=== PATIENT | male | born 1945 | race Caucasian/White ===

== ENCOUNTER 2018-04-13 19:47 | Inpatient (IN) | payer MEDICARE ==
[~2018-04-13] VITALS: Ht 167.6 cm; Wt 82.3 kg
[~2018-04-13 19:47] MED LIST: ASPI-496 PO; ATEN100T PO; ATOR40TA78 PO; CARV-39 PO; CARV12.543 PO; CARV3.1212 PO; CARV6.252 PO; CITA10TA4 PO; CLOP75TA PO; CLOP75TA52 PO; DILT120C67 PO; FURO20TA3 PO; HYDR25TA11 PO; LORA0.5T PO; LOSA50TA7 PO; SPIR25TA5 PO; TICA90TA PO
[2018-04-13 20:20] LABS: BASOPHILS # (AUTO) 0.08 x10^3/uL (0-0.1); BASOPHILS % (AUTO) 1 % (0-1); EOSINOPHILS # (AUTO) 0.23 x10^3/uL (0-0.4); EOSINOPHILS % (AUTO) 3 % (1-7); LYMPHOCYTES # (AUTO) 2.64 x10^3/uL (1-3.4); LYMPHOCYTES % (AUTO) 38 % (22-44); MD NO; MEAN CORPUSCULAR HGB CONC 33.4 g/dL (33.2-36.2); MEAN PLATELET VOLUME 8.8 fL (7.4-10.4); MONOCYTES # (AUTO) 0.48 x10^3/uL (0.2-0.8); MONOCYTES % (AUTO) 7 % (2-9); NEUTROPHILS # (AUTO) 3.54 x10^3/uL (1.8-6.8); NEUTROPHILS % (AUTO) 51 % (42-75); PLATELET COUNT 216 x10^3/uL (130-400); RED BLOOD COUNT 4.91 x10^6/uL (4.38-5.82); RED CELL DISTRIBUTION WIDTH 14.4 % (9.4-14.8)
[2018-04-13] MEDS ORDERED: OMNIPAQUE 350 MG/ML, 100ML BOTTLE ONE (20:28)
[2018-04-13 20:31] LABS: INTERNATIONAL NORMALIZED RATIO 1.02 (0.93-1.1); PROTHROMBIN TIME 10.8 Seconds (9.6-11.5)
[2018-04-13] MEDS ORDERED: SODIUM CHLORIDE FLUSH 10ML SYR IVF PRN (21:00)
[2018-04-13] MEDS ORDERED: LOSARTAN POTASSIUM 50 MG PO SCH (21:30)
[2018-04-13] MEDS ORDERED: ONDANSETRON 4 MG TABLET PO PRN (21:30)
[2018-04-13] MEDS ORDERED: LORazepam 0.5MG TABLET PO PRN (21:30)
[2018-04-13] MEDS ORDERED: POLYETHYLENE GLYCOL 17 GM PACKET PO PRN (21:30)
[2018-04-13] MEDS ORDERED: ATORVASTATIN 40 MG TABLET PO SCH (21:30)
[2018-04-13] MEDS ORDERED: BISACODYL 10 MG SUPP PR PRN (21:30)
[2018-04-13 22:17] VITALS: BP 184/116
[2018-04-13] MEDS: ATORVASTATIN 80 MG TABLET PO SCH (23:04)
[2018-04-14 00:20] VITALS: BP 183/83
[2018-04-14 04:12] VITALS: BP 190/80
[2018-04-14 05:45] LABS: BASOPHILS # (AUTO) 0.03 x10^3/uL (0-0.1); BASOPHILS % (AUTO) 0 % (0-1); EOSINOPHILS # (AUTO) 0.19 x10^3/uL (0-0.4); EOSINOPHILS % (AUTO) 2 % (1-7); LYMPHOCYTES # (AUTO) 1.91 x10^3/uL (1-3.4); LYMPHOCYTES % (AUTO) 21 % (22-44); MD NO; MEAN CORPUSCULAR HEMOGLOBIN 31.7 pg (27.5-34.5); MEAN CORPUSCULAR HGB CONC 33.4 g/dL (33.2-36.2); MEAN CORPUSCULAR VOLUME 94.7 fL (81-97); MONOCYTES # (AUTO) 0.45 x10^3/uL (0.2-0.8); MONOCYTES % (AUTO) 5 % (2-9); NEUTROPHILS # (AUTO) 6.41 x10^3/uL (1.8-6.8); NEUTROPHILS % (AUTO) 71 % (42-75); PLATELET COUNT 219 x10^3/uL (130-400); RED BLOOD COUNT 5.04 x10^6/uL (4.38-5.82); RED CELL DISTRIBUTION WIDTH 14.3 % (9.4-14.8)
[2018-04-14 05:57] LABS: ALANINE AMINOTRANSFERASE 25 U/L (12-78); ALBUMIN 3.5 g/dL (3.4-5.0); ANION GAP 10 mmol/L (5-15); CALCIUM 9.3 mg/dL (8.5-10.1); CHLORIDE 110 mmol/L (98-107); CHOLESTEROL, TOTAL 191 mg/dL (140-239); CREATININE 1.02 mg/dL (0.7-1.3)
[2018-04-14 06:00] LABS: ALKALINE PHOSPHATASE 100 U/L (45-117); BILIRUBIN,TOTAL 0.9 mg/dL (0.2-1.0); CHOL/HDL RATIO 4.8; HDL CHOL % 21 % (26-37); HDL CHOLESTEROL (DIRECT) 40 mg/dL (40-60); LDL CHOLESTEROL,CALCULATED 125 mg/dL (54-169); LDL/HDL RATIO 3.1 (0.5-3.0); TOTAL PROTEIN 7.6 g/dL (6.4-8.2); TRIGLYCERIDES 131 mg/dL (50-200); VLDL CHOLESTEROL 26 mg/dL (0-25)
[2018-04-14] MEDS ORDERED: CARVEDILOL 3.125 MG PO SCH (06:00)
[2018-04-14 07:45] VITALS: BP 151/87
[2018-04-14] MEDS ORDERED: ASPIRIN 81 MG TABLET EC PO SCH (09:00)
[2018-04-14] MEDS ORDERED: CLOPIDOGREL 75 MG TABLET PO SCH (09:00)
[2018-04-14] MEDS ORDERED: SPIRONOLACTONE 25 MG TABLET PO SCH (09:00)
[2018-04-14 12:39] VITALS: BP 182/121
[2018-04-14] MEDS: CITALOPRAM 10 MG TABLET PO SCH (13:23)
[2018-04-14] MEDS: FUROSEMIDE 20 MG TABLET PO SCH (13:23)
[2018-04-14] MEDS ORDERED: DO NOT GIVE XX PRN (15:30)
[2018-04-14] MEDS ORDERED: HEPARIN wt. based STROKE protocol IV PRN (15:30)
[2018-04-14] MEDS ORDERED: HEPARIN 25,000 UNITS/500ML PMX 500 ML IV PRN (16:00)
[2018-04-14 20:00] VITALS: BP 209/131
[2018-04-14] MEDS: ATORVASTATIN 80 MG TABLET PO SCH (20:20)
[2018-04-14] MEDS: ACETAMINOPHEN 325 MG TABLET PO PRN (20:20)
[2018-04-14] MEDS: APIXABAN 5 MG TABLET PO SCH (20:20)
[2018-04-14 21:15] VITALS: BP 191/101
[2018-04-15 00:35] VITALS: BP 183/104
[2018-04-15] MEDS: ACETAMINOPHEN 325 MG TABLET PO PRN (03:22)
[2018-04-15 08:00] VITALS: BP 193/116
[2018-04-15] MEDS ORDERED: hydrALAzine 20 MG/ML, 1ML IV ONE (08:00)
[2018-04-15 08:31] LABS: BASOPHILS # (AUTO) 0.07 x10^3/uL (0-0.1); BASOPHILS % (AUTO) 1 % (0-1); EOSINOPHILS % (AUTO) 1 % (1-7); LYMPHOCYTES # (AUTO) 1.87 x10^3/uL (1-3.4); LYMPHOCYTES % (AUTO) 19 % (22-44); MD NO; MEAN CORPUSCULAR HEMOGLOBIN 31.4 pg (27.5-34.5); MEAN CORPUSCULAR HGB CONC 32.7 g/dL (33.2-36.2); MEAN CORPUSCULAR VOLUME 95.9 fL (81-97); MEAN PLATELET VOLUME 9.2 fL (7.4-10.4); MONOCYTES # (AUTO) 0.42 x10^3/uL (0.2-0.8); MONOCYTES % (AUTO) 4 % (2-9); NEUTROPHILS # (AUTO) 7.23 x10^3/uL (1.8-6.8); NEUTROPHILS % (AUTO) 75 % (42-75); PLATELET COUNT 215 x10^3/uL (130-400); RED BLOOD COUNT 5.21 x10^6/uL (4.38-5.82); RED CELL DISTRIBUTION WIDTH 14.3 % (9.4-14.8)
[2018-04-15 08:41] LABS: ALBUMIN 3.4 g/dL (3.4-5.0); ANION GAP 9 mmol/L (5-15); CALCIUM 8.8 mg/dL (8.5-10.1); CHLORIDE 108 mmol/L (98-107); CREATININE 1.06 mg/dL (0.7-1.3)
[2018-04-15 08:53] LABS: TROPONIN I 0.057 ng/mL (0.000-0.045)
[2018-04-15 13:25] VITALS: BP 189/78
[2018-04-15] MEDS: FUROSEMIDE 20 MG TABLET PO SCH (13:46)
[2018-04-15] MEDS: CITALOPRAM 10 MG TABLET PO SCH (13:46)
[2018-04-15] MEDS: APIXABAN 5 MG TABLET PO SCH ×2 (13:46→21:46)
[2018-04-15 20:03] VITALS: BP 177/89
[2018-04-15] MEDS: ATORVASTATIN 80 MG TABLET PO SCH (21:46)
[2018-04-16 01:47] VITALS: BP 167/79
[2018-04-16 05:38] LABS: TROPONIN I 0.706 ng/mL (0.000-0.045)
[2018-04-16 07:51] VITALS: BP_SYST 171; BP_SYST 183; BP_DIAS 110
[2018-04-16] MEDS: FUROSEMIDE 20 MG TABLET PO SCH ×2 (08:15→08:22)
[2018-04-16] MEDS: APIXABAN 5 MG TABLET PO SCH ×3 (08:15→21:26)
[2018-04-16] MEDS: CITALOPRAM 10 MG TABLET PO SCH ×2 (08:15→08:22)
[2018-04-16] MEDS ORDERED: hydrALAzine 20 MG/ML, 1ML IV PRN (08:30)
[2018-04-16] MEDS: CARVEDILOL 6.25 MG TABLET PO SCH ×2 (10:06→18:23)
[2018-04-16] MEDS: ONDANSETRON 2MG/ML, 2ML IVPush PRN (10:51)
[2018-04-16 12:10] VITALS: BP 168/91
[2018-04-16] MEDS ORDERED: MAGNESIUM SULFATE PMX 2GM/50ML 50 ML IV ONE (12:30)
[2018-04-16] MEDS ORDERED: NITROGLYCERIN 0.4 MG BOTTLE (25 TABS) SL PRN (12:30)
[2018-04-16 12:57] LABS: TROPONIN I 0.586 ng/mL (0.000-0.045)
[2018-04-16 14:10] VITALS: BP 151/77
[2018-04-16 17:37] LABS: TROPONIN I 0.785 ng/mL (0.000-0.045)
[2018-04-16 18:59] VITALS: BP 148/79
[2018-04-16] MEDS: ATORVASTATIN 80 MG TABLET PO SCH (21:27)
[2018-04-16] MEDS: LOSARTAN 50MG TABLET PO SCH (21:27)
[2018-04-17 01:43] VITALS: BP 151/76
[2018-04-17] MEDS: CARVEDILOL 6.25 MG TABLET PO SCH ×2 (05:53→18:31)
[2018-04-17 07:13] VITALS: BP 144/80
[2018-04-17] MEDS: CITALOPRAM 10 MG TABLET PO SCH (09:32)
[2018-04-17] MEDS: APIXABAN 5 MG TABLET PO SCH ×2 (09:32→22:06)
[2018-04-17] MEDS: FUROSEMIDE 20 MG TABLET PO SCH (09:32)
[2018-04-17] MEDS: SPIRONOLACTONE 25 MG TABLET PO SCH (11:41)
[2018-04-17 14:10] VITALS: BP 180/91
[2018-04-17 19:28] VITALS: BP 161/90
[2018-04-17] MEDS: LOSARTAN 50MG TABLET PO SCH (22:07)
[2018-04-17] MEDS: ATORVASTATIN 80 MG TABLET PO SCH (22:07)
[2018-04-17] MEDS: ONDANSETRON 2MG/ML, 2ML IVPush PRN (22:35)
[2018-04-18 01:17] VITALS: BP 160/90
[2018-04-18 05:34] VITALS: BP 176/91
[2018-04-18] MEDS: CARVEDILOL 6.25 MG TABLET PO SCH (05:37)
[2018-04-18 05:42] LABS: ALBUMIN 3.4 g/dL (3.4-5.0); ANION GAP 9 mmol/L (5-15); CALCIUM 8.6 mg/dL (8.5-10.1); CHLORIDE 112 mmol/L (98-107); CREATININE 1.55 mg/dL (0.7-1.3)
[2018-04-18] MEDS: SPIRONOLACTONE 25 MG TABLET PO SCH (09:39)
[2018-04-18] MEDS: APIXABAN 5 MG TABLET PO SCH ×2 (09:39→21:46)
[2018-04-18] MEDS: FUROSEMIDE 20 MG TABLET PO SCH (09:39)
[2018-04-18] MEDS: CITALOPRAM 10 MG TABLET PO SCH (09:39)
[2018-04-18] MEDS ORDERED: LORazepam 0.5MG TABLET PO PRN ×2 (11:30)
[2018-04-18] MEDS ORDERED: SODIUM CHLORIDE 0.45% 1,000 ML IV SCH (12:30)
[2018-04-18] MEDS: SODIUM CHLORIDE 0.45% 500 ML IV SCH ×2 (12:30→19:38)
[2018-04-18 13:29] VITALS: BP 151/81
[2018-04-18] MEDS: CARVEDILOL 12.5 MG TABLET PO SCH (17:49)
[2018-04-18 19:42] VITALS: BP 127/72
[2018-04-18] MEDS: ATORVASTATIN 80 MG TABLET PO SCH (21:46)
[2018-04-18] MEDS: LOSARTAN 50MG TABLET PO SCH (21:46)
[2018-04-18] MEDS ORDERED: MIRTAZAPINE 15 MG TABLET ONE (23:22)
[2018-04-18] MEDS: MIRTAZAPINE 15 MG TABLET PO SCH (23:24)
[2018-04-19 00:58] VITALS: BP 134/68
[2018-04-19 05:07] VITALS: BP 165/87
[2018-04-19] MEDS: CARVEDILOL 12.5 MG TABLET PO SCH ×2 (05:07→18:44)
[2018-04-19] MEDS: SODIUM CHLORIDE 0.45% 500 ML IV SCH ×2 (05:07→18:00)
[2018-04-19 05:35] LABS: BASOPHILS # (AUTO) 0.06 x10^3/uL (0-0.1); BASOPHILS % (AUTO) 1 % (0-1); EOSINOPHILS # (AUTO) 0.34 x10^3/uL (0-0.4); EOSINOPHILS % (AUTO) 3 % (1-7); LYMPHOCYTES # (AUTO) 2.98 x10^3/uL (1-3.4); LYMPHOCYTES % (AUTO) 29 % (22-44); MD NO; MEAN CORPUSCULAR HGB CONC 33.4 g/dL (33.2-36.2); MEAN CORPUSCULAR VOLUME 95.9 fL (81-97); MEAN PLATELET VOLUME 9.3 fL (7.4-10.4); MONOCYTES # (AUTO) 0.84 x10^3/uL (0.2-0.8); MONOCYTES % (AUTO) 8 % (2-9); NEUTROPHILS # (AUTO) 5.99 x10^3/uL (1.8-6.8); NEUTROPHILS % (AUTO) 59 % (42-75); PLATELET COUNT 201 x10^3/uL (130-400); RED BLOOD COUNT 4.58 x10^6/uL (4.38-5.82); RED CELL DISTRIBUTION WIDTH 14.5 % (9.4-14.8)
[2018-04-19 05:56] LABS: ALBUMIN 3.1 g/dL (3.4-5.0); ANION GAP 9 mmol/L (5-15); CALCIUM 8.4 mg/dL (8.5-10.1); CHLORIDE 109 mmol/L (98-107)
[2018-04-19 06:09] LABS: ALANINE AMINOTRANSFERASE 19 U/L (12-78); ALKALINE PHOSPHATASE 78 U/L (45-117); BILIRUBIN,TOTAL 1.1 mg/dL (0.2-1.0); CREATININE 1.82 mg/dL (0.7-1.3); FREE T4 (FREE THYROXINE) 0.96 ng/dL (0.76-1.46); TOTAL PROTEIN 6.9 g/dL (6.4-8.2)
[2018-04-19 07:01] VITALS: BP 139/69
[2018-04-19] MEDS: CITALOPRAM 10 MG TABLET PO SCH (09:00)
[2018-04-19] MEDS: FUROSEMIDE 20 MG TABLET PO SCH (09:37)
[2018-04-19] MEDS: SPIRONOLACTONE 25 MG TABLET PO SCH (09:37)
[2018-04-19] MEDS: APIXABAN 5 MG TABLET PO SCH ×2 (09:37→20:38)
[2018-04-19 12:46] VITALS: BP 138/79
[2018-04-19 18:40] VITALS: BP 151/81
[2018-04-19 19:02] VITALS: BP 146/78
[2018-04-19] MEDS: LOSARTAN 50MG TABLET PO SCH (20:38)
[2018-04-19] MEDS: MIRTAZAPINE 15 MG TABLET PO SCH (20:38)
[2018-04-19] MEDS: ATORVASTATIN 80 MG TABLET PO SCH (20:38)
[2018-04-20 01:18] VITALS: BP 136/82
[2018-04-20] MEDS: CARVEDILOL 12.5 MG TABLET PO SCH ×3 (05:46→18:35)
[2018-04-20] MEDS: SODIUM CHLORIDE 0.45% 500 ML IV SCH ×2 (05:46→18:35)
[2018-04-20 06:38] VITALS: BP 169/92
[2018-04-20 06:42] LABS: ALANINE AMINOTRANSFERASE 19 U/L (12-78); ALBUMIN 3.1 g/dL (3.4-5.0); ANION GAP 7 mmol/L (5-15); BASOPHILS # (AUTO) 0.06 x10^3/uL (0-0.1); BASOPHILS % (AUTO) 1 % (0-1); CALCIUM 8.7 mg/dL (8.5-10.1); CHLORIDE 112 mmol/L (98-107); EOSINOPHILS # (AUTO) 0.22 x10^3/uL (0-0.4); EOSINOPHILS % (AUTO) 2 % (1-7); LYMPHOCYTES # (AUTO) 2.21 x10^3/uL (1-3.4); LYMPHOCYTES % (AUTO) 24 % (22-44); MD NO; MEAN CORPUSCULAR HGB CONC 33.9 g/dL (33.2-36.2); MEAN CORPUSCULAR VOLUME 97.3 fL (81-97); MEAN PLATELET VOLUME 9.6 fL (7.4-10.4); MONOCYTES # (AUTO) 0.69 x10^3/uL (0.2-0.8); MONOCYTES % (AUTO) 8 % (2-9); NEUTROPHILS # (AUTO) 6.07 x10^3/uL (1.8-6.8); NEUTROPHILS % (AUTO) 66 % (42-75); PLATELET COUNT 211 x10^3/uL (130-400); RED BLOOD COUNT 4.54 x10^6/uL (4.38-5.82); RED CELL DISTRIBUTION WIDTH 14.6 % (9.4-14.8)
[2018-04-20 06:44] LABS: ALKALINE PHOSPHATASE 83 U/L (45-117); BILIRUBIN,TOTAL 1.1 mg/dL (0.2-1.0); TOTAL PROTEIN 6.9 g/dL (6.4-8.2)
[2018-04-20] MEDS: FUROSEMIDE 20 MG TABLET PO SCH (10:31)
[2018-04-20] MEDS: APIXABAN 5 MG TABLET PO SCH ×2 (10:31→22:34)
[2018-04-20] MEDS: SPIRONOLACTONE 25 MG TABLET PO SCH (10:31)
[2018-04-20 12:21] VITALS: BP 159/91
[2018-04-20 18:35] VITALS: BP 152/77
[2018-04-20 19:25] VITALS: BP 130/91
[2018-04-20] MEDS: ATORVASTATIN 80 MG TABLET PO SCH (22:33)
[2018-04-20] MEDS: LOSARTAN 50MG TABLET PO SCH (22:34)
[2018-04-20] MEDS: MIRTAZAPINE 15 MG TABLET PO SCH (22:34)
[2018-04-21] VITALS (7 sets, daily range): BP systolic 108–161; BP diastolic 64–81
[2018-04-21] MEDS: SODIUM CHLORIDE 0.45% 500 ML IV SCH ×2 (00:37→06:27)
[2018-04-21 05:55] LABS: BASOPHILS # (AUTO) 0.04 x10^3/uL (0-0.1); BASOPHILS % (AUTO) 1 % (0-1); EOSINOPHILS # (AUTO) 0.19 x10^3/uL (0-0.4); EOSINOPHILS % (AUTO) 2 % (1-7); LYMPHOCYTES % (AUTO) 26 % (22-44); MD NO; MEAN CORPUSCULAR HEMOGLOBIN 32.2 pg (27.5-34.5); MEAN CORPUSCULAR HGB CONC 33.8 g/dL (33.2-36.2); MEAN CORPUSCULAR VOLUME 95.4 fL (81-97); MEAN PLATELET VOLUME 9.7 fL (7.4-10.4); MONOCYTES # (AUTO) 0.67 x10^3/uL (0.2-0.8); MONOCYTES % (AUTO) 8 % (2-9); NEUTROPHILS # (AUTO) 5.09 x10^3/uL (1.8-6.8); NEUTROPHILS % (AUTO) 63 % (42-75); PLATELET COUNT 188 x10^3/uL (130-400); RED BLOOD COUNT 4.38 x10^6/uL (4.38-5.82); RED CELL DISTRIBUTION WIDTH 13.9 % (9.4-14.8)
[2018-04-21 06:02] LABS: ANION GAP 6 mmol/L (5-15); CHLORIDE 113 mmol/L (98-107); CREATININE 1.25 mg/dL (0.7-1.3)
[2018-04-21] MEDS: FUROSEMIDE 20 MG TABLET PO SCH (09:22)
[2018-04-21] MEDS: ACETAMINOPHEN 325 MG TABLET PO PRN (09:22)
[2018-04-21] MEDS: APIXABAN 5 MG TABLET PO SCH ×2 (09:22→21:47)
[2018-04-21] MEDS: SPIRONOLACTONE 25 MG TABLET PO SCH (09:22)
[2018-04-21] MEDS: CARVEDILOL 12.5 MG TABLET PO SCH ×3 (09:22→16:35)
[2018-04-21] MEDS ORDERED: METHOCARBAMOL 500 MG TABLET PO PRN ×2 (10:30→16:30)
[2018-04-21] MEDS ORDERED: DEXTROSE 5% 500 ML IV SCH (10:30)
[2018-04-21] MEDS ORDERED: LIDODERM 5% PATCH TD SCH (10:30)
[2018-04-21] MEDS ORDERED: LIDODERM 5% PATCH TD PRN (16:00)
[2018-04-21 18:56] LABS: TROPONIN I 0.099 ng/mL (0.000-0.045)
[2018-04-21] MEDS: ATORVASTATIN 80 MG TABLET PO SCH (21:47)
[2018-04-21] MEDS: MIRTAZAPINE 15 MG TABLET PO SCH (21:48)
[2018-04-21] MEDS: LOSARTAN 50MG TABLET PO SCH (21:49)
[2018-04-22 00:41] VITALS: BP 144/77
[2018-04-22] MEDS: SODIUM CHLORIDE 0.45% 500 ML IV SCH (02:13)
[2018-04-22] MEDS: CARVEDILOL 12.5 MG TABLET PO SCH ×2 (05:11→18:11)
[2018-04-22 05:52] LABS: BASOPHILS # (AUTO) 0.05 x10^3/uL (0-0.1); BASOPHILS % (AUTO) 1 % (0-1); EOSINOPHILS # (AUTO) 0.31 x10^3/uL (0-0.4); EOSINOPHILS % (AUTO) 3 % (1-7); LYMPHOCYTES # (AUTO) 2.82 x10^3/uL (1-3.4); LYMPHOCYTES % (AUTO) 30 % (22-44); MD NO; MEAN CORPUSCULAR HEMOGLOBIN 32.7 pg (27.5-34.5); MEAN CORPUSCULAR HGB CONC 33.7 g/dL (33.2-36.2); MEAN PLATELET VOLUME 9.8 fL (7.4-10.4); MONOCYTES # (AUTO) 0.75 x10^3/uL (0.2-0.8); MONOCYTES % (AUTO) 8 % (2-9); NEUTROPHILS # (AUTO) 5.42 x10^3/uL (1.8-6.8); NEUTROPHILS % (AUTO) 58 % (42-75); PLATELET COUNT 192 x10^3/uL (130-400); RED CELL DISTRIBUTION WIDTH 13.9 % (9.4-14.8)
[2018-04-22 05:57] LABS: ALBUMIN 2.9 g/dL (3.4-5.0); ANION GAP 8 mmol/L (5-15); CALCIUM 8.6 mg/dL (8.5-10.1); CHLORIDE 111 mmol/L (98-107)
[2018-04-22 05:58] LABS: CREATININE 1.22 mg/dL (0.7-1.3)
[2018-04-22 07:48] VITALS: BP 148/84
[2018-04-22] MEDS ORDERED: DEXTROSE 5% 1,000 ML IV SCH (09:00)
[2018-04-22] MEDS: DEXTROSE 5% 1,000 ML IV SCH ×2 (09:20→17:45)
[2018-04-22] MEDS: FUROSEMIDE 20 MG TABLET PO SCH (11:12)
[2018-04-22] MEDS: APIXABAN 5 MG TABLET PO SCH ×2 (11:12→21:51)
[2018-04-22] MEDS: SPIRONOLACTONE 25 MG TABLET PO SCH (11:12)
[2018-04-22] MEDS: TAMSULOSIN 0.4 MG CAP.ER.24H PO SCH (11:12)
[2018-04-22 12:11] VITALS: BP 174/82
[2018-04-22] MEDS ORDERED: POTASSIUM CHLORIDE 20 MEQ TAB.ER.PRT PO ONE ×2 (13:00→18:00)
[2018-04-22 15:35] LABS: ANION GAP 9 mmol/L (5-15); CALCIUM 8.6 mg/dL (8.5-10.1); CHLORIDE 110 mmol/L (98-107)
[2018-04-22 15:36] LABS: CREATININE 1.13 mg/dL (0.7-1.3)
[2018-04-22 19:10] VITALS: BP 157/90
[2018-04-22] MEDS: MIRTAZAPINE 15 MG TABLET PO SCH (21:51)
[2018-04-22] MEDS: ATORVASTATIN 80 MG TABLET PO SCH (21:51)
[2018-04-22] MEDS: LOSARTAN 50MG TABLET PO SCH (21:51)
[2018-04-23 00:37] VITALS: BP 171/100
[2018-04-23 00:49] VITALS: BP 146/89
[2018-04-23] MEDS: DEXTROSE 5% 1,000 ML IV SCH ×2 (02:55→09:58)
[2018-04-23 05:25] VITALS: BP 171/93
[2018-04-23] MEDS: CARVEDILOL 12.5 MG TABLET PO SCH (05:26)
[2018-04-23 06:10] LABS: ALBUMIN 2.8 g/dL (3.4-5.0); ANION GAP 7 mmol/L (5-15); CALCIUM 8.6 mg/dL (8.5-10.1); CHLORIDE 107 mmol/L (98-107); CREATININE 1.15 mg/dL (0.7-1.3)
[2018-04-23 06:13] LABS: BASOPHILS # (AUTO) 0.04 x10^3/uL (0-0.1); BASOPHILS % (AUTO) 0 % (0-1); EOSINOPHILS # (AUTO) 0.29 x10^3/uL (0-0.4); EOSINOPHILS % (AUTO) 3 % (1-7); LYMPHOCYTES # (AUTO) 2.25 x10^3/uL (1-3.4); LYMPHOCYTES % (AUTO) 23 % (22-44); MD NO; MEAN CORPUSCULAR HEMOGLOBIN 32.5 pg (27.5-34.5); MEAN CORPUSCULAR VOLUME 95.4 fL (81-97); MEAN PLATELET VOLUME 10.3 fL (7.4-10.4); MONOCYTES # (AUTO) 0.83 x10^3/uL (0.2-0.8); MONOCYTES % (AUTO) 9 % (2-9); NEUTROPHILS # (AUTO) 6.17 x10^3/uL (1.8-6.8); NEUTROPHILS % (AUTO) 64 % (42-75); PLATELET COUNT 195 x10^3/uL (130-400); RED BLOOD COUNT 4.51 x10^6/uL (4.38-5.82)
[2018-04-23 07:33] VITALS: BP 122/75
[2018-04-23] MEDS: TAMSULOSIN 0.4 MG CAP.ER.24H PO SCH (09:55)
[2018-04-23] MEDS: APIXABAN 5 MG TABLET PO SCH (09:55)
[2018-04-23] MEDS: SPIRONOLACTONE 25 MG TABLET PO SCH (09:55)
[2018-04-23] MEDS ORDERED: APIX5TAB PO (17:11)
[2018-04-23] MEDS ORDERED: CARV12.543 PO (17:11)
== END 2018-04-23 14:21 | DRG 64 ==
LOC: ED 21:39 → EDIP 21:58 → 4EST 22:14
PROVIDERS: ADMIT Hospitalist; ATTEND Hospitalist
DX: I63.9 Cerebral infarction, unspecified (principal); N17.0 Acute kidney failure with tubular necrosis; G81.04 Flaccid hemiplegia affecting left nondominant side; R45.851 Suicidal ideations; E87.0 Hyperosmolality and hypernatremia; R29.706 NIHSS score 6; I25.10 Atherosclerotic heart disease of native coronary artery without angina pectoris; F41.1 Generalized anxiety disorder; F32.9 Major depressive disorder, single episode, unspecified; E78.5 Hyperlipidemia, unspecified; I51.3 Intracardiac thrombosis, not elsewhere classified; Z66 Do not resuscitate; I25.5 Ischemic cardiomyopathy; R45.850 Homicidal ideations; I50.9 Heart failure, unspecified; I11.0 Hypertensive heart disease with heart failure; Z51.5 Encounter for palliative care; R13.10 Dysphagia, unspecified; R53.81 Other malaise; R47.9 Unspecified speech disturbances; F12.90 Cannabis use, unspecified, uncomplicated; F43.21 Adjustment disorder with depressed mood; I34.0 Nonrheumatic mitral (valve) insufficiency; I35.0 Nonrheumatic aortic (valve) stenosis; J44.9 Chronic obstructive pulmonary disease, unspecified; R47.1 Dysarthria and anarthria; R63.3 Feeding difficulties; Z79.01 Long term (current) use of anticoagulants; Z82.0 Family history of epilepsy and other diseases of the nervous system; Z87.891 Personal history of nicotine dependence; Z95.1 Presence of aortocoronary bypass graft; Z90.89 Acquired absence of other organs; Z82.3 Family history of stroke; I25.2 Old myocardial infarction; Z95.5 Presence of coronary angioplasty implant and graft; Z91.14 Patient's other noncompliance with medication regimen; Z88.2 Allergy status to sulfonamides; Q76.49 Other congenital malformations of spine, not associated with scoliosis
CPT/HCPCS: 36415; 70450; 70496; 70498; 70551; 71045; 74230; 80047; 80048; 80053; 80061; 82040; 82962; 83735; 84100; 84439; 84443; 84484; 85025; 85520; 85610; 85730; 93005; 99291; C8929; G0378; J1644; J2405; J7070; Q0162; Q9957; Q9967; 92523-GN; G0515-GN; J0360; J3475; J7060

== ENCOUNTER 2018-04-23 13:36 | Inpatient (IN) | payer MEDICARE ==
[~2018-04-23] VITALS: Ht 167.6 cm; Wt 66.0 kg
[2018-04-23] MEDS ORDERED: BISACODYL 10 MG SUPP PR PRN (15:00)
[2018-04-23] MEDS ORDERED: POLYETHYLENE GLYCOL 17 GM PACKET PO PRN (15:00)
[2018-04-23] MEDS ORDERED: ONDANSETRON ODT 4 MG PO PRN (15:00)
[2018-04-23 15:06] VITALS: BP 137/81
[2018-04-23] MEDS ORDERED: APIX5TAB PO (17:11)
[2018-04-23] MEDS ORDERED: CARV12.543 PO (17:11)
[2018-04-23] MEDS ORDERED: NITROGLYCERIN 0.4 MG BOTTLE (25 TABS) SL PRN (17:30)
[2018-04-23] MEDS ORDERED: CARVEDILOL 3.125 MG PO SCH (18:00)
[2018-04-23 18:46] VITALS: BP 127/68
[2018-04-23 19:22] VITALS: BP 125/73
[2018-04-23] MEDS: APIXABAN 5 MG TABLET PO SCH (20:11)
[2018-04-23] MEDS: ATORVASTATIN 40 MG TABLET PO SCH (20:11)
[2018-04-23] MEDS: LOSARTAN 50MG TABLET PO SCH (20:12)
[2018-04-23] MEDS ORDERED: MIRTAZAPINE 15 MG TABLET PO SCH (21:00)
[2018-04-23] MEDS ORDERED: SODIUM CHLORIDE FLUSH 10ML SYR IVF SCH (21:00)
[2018-04-23] MEDS: LORazepam 0.5MG TABLET PO PRN (21:30)
[2018-04-24 05:50] VITALS: BP 162/92
[2018-04-24 06:01] VITALS: BP 162/91
[2018-04-24] MEDS: CARVEDILOL 12.5 MG TABLET PO SCH ×2 (06:09→19:30)
[2018-04-24 07:03] LABS: CHOL/HDL RATIO 3.4; FOLATE LEVEL 15.7 ng/mL (3.1-17.5); FREE T4 (FREE THYROXINE) 1.12 ng/dL (0.76-1.46); LDL/HDL RATIO 1.7 (0.5-3.0); THYROID STIMULATING HORMONE 6.06 mIU/L (0.358-3.740)
[2018-04-24 07:38] VITALS: BP 155/85
[2018-04-24] MEDS: FUROSEMIDE 20 MG TABLET PO SCH (08:49)
[2018-04-24] MEDS: APIXABAN 5 MG TABLET PO SCH ×2 (08:49→21:02)
[2018-04-24] MEDS: TAMSULOSIN 0.4 MG CAP.ER.24H PO SCH (08:49)
[2018-04-24] MEDS: SPIRONOLACTONE 25 MG TABLET PO SCH (08:49)
[2018-04-24] MEDS: SENNA/DOCUSATE TABLET PO SCH (08:49)
[2018-04-24] MEDS: CITALOPRAM 10 MG TABLET PO SCH (08:49)
[2018-04-24] MEDS ORDERED: TEMPLATE NON-FORMULARY MED. (Aspirin** (Aspir 81**) 81 MG) PO SCH (09:00)
[2018-04-24] MEDS ORDERED: CLOPIDOGREL 75 MG TABLET PO SCH (09:00)
[2018-04-24 19:38] VITALS: BP 107/72
[2018-04-24] MEDS: ATORVASTATIN 40 MG TABLET PO SCH (21:02)
[2018-04-24] MEDS: MIRTAZAPINE 15 MG TABLET PO SCH (21:02)
[2018-04-24] MEDS: LOSARTAN 50MG TABLET PO SCH (21:02)
[2018-04-25] MEDS: CARVEDILOL 12.5 MG TABLET PO SCH ×2 (05:30→19:41)
[2018-04-25 07:38] VITALS: BP 153/86
[2018-04-25 08:31] LABS: MICROSCOPIC NOT IND
[2018-04-25 08:32] LABS: CULTURE INDICATED? NO
[2018-04-25] MEDS: TAMSULOSIN 0.4 MG CAP.ER.24H PO SCH (09:25)
[2018-04-25] MEDS: APIXABAN 5 MG TABLET PO SCH ×2 (09:25→20:46)
[2018-04-25] MEDS: SPIRONOLACTONE 25 MG TABLET PO SCH (09:26)
[2018-04-25] MEDS: CITALOPRAM 10 MG TABLET PO SCH (09:26)
[2018-04-25] MEDS: FUROSEMIDE 20 MG TABLET PO SCH (09:26)
[2018-04-25] MEDS: SENNA/DOCUSATE TABLET PO SCH (09:26)
[2018-04-25 19:35] VITALS: BP 148/88
[2018-04-25] MEDS: ATORVASTATIN 40 MG TABLET PO SCH (20:46)
[2018-04-25] MEDS: LOSARTAN 50MG TABLET PO SCH (20:46)
[2018-04-25] MEDS: MIRTAZAPINE 15 MG TABLET PO SCH (20:47)
[2018-04-25] MEDS: ACETAMINOPHEN 325 MG TABLET PO PRN (23:20)
[2018-04-26] MEDS: CARVEDILOL 12.5 MG TABLET PO SCH ×2 (05:57→18:55)
[2018-04-26 07:26] VITALS: BP 127/70
[2018-04-26] MEDS: SPIRONOLACTONE 25 MG TABLET PO SCH (09:11)
[2018-04-26] MEDS: FUROSEMIDE 20 MG TABLET PO SCH (09:11)
[2018-04-26] MEDS: TAMSULOSIN 0.4 MG CAP.ER.24H PO SCH (09:11)
[2018-04-26] MEDS: CITALOPRAM 10 MG TABLET PO SCH (09:11)
[2018-04-26] MEDS: APIXABAN 5 MG TABLET PO SCH ×2 (09:11→20:30)
[2018-04-26] MEDS: SENNA/DOCUSATE TABLET PO SCH (09:12)
[2018-04-26 18:53] VITALS: BP 152/75
[2018-04-26] MEDS: LOSARTAN 50MG TABLET PO SCH (20:29)
[2018-04-26] MEDS: ATORVASTATIN 40 MG TABLET PO SCH (20:30)
[2018-04-26] MEDS: ACETAMINOPHEN 325 MG TABLET PO PRN (20:30)
[2018-04-26] MEDS: MIRTAZAPINE 15 MG TABLET PO SCH (20:31)
[2018-04-27] MEDS: CARVEDILOL 12.5 MG TABLET PO SCH ×2 (06:00→18:38)
[2018-04-27 07:44] VITALS: BP 131/78
[2018-04-27] MEDS: CITALOPRAM 10 MG TABLET PO SCH (08:31)
[2018-04-27] MEDS: SPIRONOLACTONE 25 MG TABLET PO SCH (08:31)
[2018-04-27] MEDS: APIXABAN 5 MG TABLET PO SCH ×2 (08:32→21:11)
[2018-04-27] MEDS: TAMSULOSIN 0.4 MG CAP.ER.24H PO SCH (08:32)
[2018-04-27] MEDS: FUROSEMIDE 20 MG TABLET PO SCH (08:32)
[2018-04-27] MEDS: SENNA/DOCUSATE TABLET PO SCH (08:32)
[2018-04-27 18:38] VITALS: BP 131/67
[2018-04-27 19:35] VITALS: BP 130/71
[2018-04-27] MEDS: MIRTAZAPINE 15 MG TABLET PO SCH (21:00)
[2018-04-27] MEDS: LOSARTAN 50MG TABLET PO SCH (21:00)
[2018-04-27] MEDS: ATORVASTATIN 40 MG TABLET PO SCH (21:11)
[2018-04-27] MEDS: ACETAMINOPHEN 325 MG TABLET PO PRN (21:45)
[2018-04-28] MEDS: CARVEDILOL 12.5 MG TABLET PO SCH ×2 (05:54→18:16)
[2018-04-28 07:42] VITALS: BP 164/84
[2018-04-28] MEDS: CITALOPRAM 10 MG TABLET PO SCH (09:03)
[2018-04-28] MEDS: SENNA/DOCUSATE TABLET PO SCH (09:03)
[2018-04-28] MEDS: TAMSULOSIN 0.4 MG CAP.ER.24H PO SCH (09:03)
[2018-04-28] MEDS: SPIRONOLACTONE 25 MG TABLET PO SCH (09:04)
[2018-04-28] MEDS: APIXABAN 5 MG TABLET PO SCH ×2 (09:06→20:38)
[2018-04-28] MEDS: FUROSEMIDE 20 MG TABLET PO SCH (09:08)
[2018-04-28 18:15] VITALS: BP 128/62
[2018-04-28 19:40] VITALS: BP 146/80
[2018-04-28] MEDS: LOSARTAN 50MG TABLET PO SCH (20:38)
[2018-04-28] MEDS: MIRTAZAPINE 15 MG TABLET PO SCH (20:38)
[2018-04-28] MEDS: ATORVASTATIN 40 MG TABLET PO SCH (20:38)
[2018-04-29] MEDS: LORazepam 0.5MG TABLET PO PRN (02:15)
[2018-04-29 07:45] VITALS: BP 175/90
[2018-04-29] MEDS: FUROSEMIDE 20 MG TABLET PO SCH (09:55)
[2018-04-29] MEDS: CITALOPRAM 10 MG TABLET PO SCH (09:55)
[2018-04-29] MEDS: TAMSULOSIN 0.4 MG CAP.ER.24H PO SCH (09:55)
[2018-04-29] MEDS: CARVEDILOL 12.5 MG TABLET PO SCH ×2 (09:56→20:49)
[2018-04-29] MEDS: SENNA/DOCUSATE TABLET PO SCH (09:56)
[2018-04-29] MEDS: APIXABAN 5 MG TABLET PO SCH ×2 (09:56→20:49)
[2018-04-29] MEDS: SPIRONOLACTONE 25 MG TABLET PO SCH (09:56)
[2018-04-29 19:44] VITALS: BP 151/84
[2018-04-29] MEDS: LOSARTAN 50MG TABLET PO SCH (20:48)
[2018-04-29] MEDS: ATORVASTATIN 40 MG TABLET PO SCH (20:49)
[2018-04-29] MEDS: MIRTAZAPINE 15 MG TABLET PO SCH (20:50)
[2018-04-30] MEDS: TAMSULOSIN 0.4 MG CAP.ER.24H PO SCH (08:30)
[2018-04-30] MEDS: CITALOPRAM 10 MG TABLET PO SCH (08:30)
[2018-04-30] MEDS: SPIRONOLACTONE 25 MG TABLET PO SCH (08:30)
[2018-04-30] MEDS: FUROSEMIDE 20 MG TABLET PO SCH (08:30)
[2018-04-30] MEDS: CARVEDILOL 12.5 MG TABLET PO SCH ×2 (08:30→18:41)
[2018-04-30] MEDS: APIXABAN 5 MG TABLET PO SCH ×2 (08:30→20:37)
[2018-04-30] MEDS: SENNA/DOCUSATE TABLET PO SCH (08:30)
[2018-04-30 08:37] VITALS: BP 174/80
[2018-04-30 18:28] VITALS: BP 126/63
[2018-04-30 20:07] VITALS: BP 128/63
[2018-04-30] MEDS: ATORVASTATIN 40 MG TABLET PO SCH (20:35)
[2018-04-30] MEDS: MIRTAZAPINE 15 MG TABLET PO SCH (20:36)
[2018-04-30] MEDS: LOSARTAN 50MG TABLET PO SCH (20:37)
[2018-05-01] MEDS: LORazepam 0.5MG TABLET PO PRN (03:21)
[2018-05-01] MEDS: CARVEDILOL 12.5 MG TABLET PO SCH ×2 (05:35→18:29)
[2018-05-01 07:45] VITALS: BP 168/77
[2018-05-01] MEDS: TAMSULOSIN 0.4 MG CAP.ER.24H PO SCH (09:09)
[2018-05-01] MEDS: FUROSEMIDE 20 MG TABLET PO SCH (09:10)
[2018-05-01] MEDS: CITALOPRAM 10 MG TABLET PO SCH (09:10)
[2018-05-01] MEDS: APIXABAN 5 MG TABLET PO SCH ×2 (09:10→20:54)
[2018-05-01] MEDS: SPIRONOLACTONE 25 MG TABLET PO SCH (09:10)
[2018-05-01] MEDS: SENNA/DOCUSATE TABLET PO SCH (09:10)
[2018-05-01 19:38] VITALS: BP 146/77
[2018-05-01] MEDS: MIRTAZAPINE 15 MG TABLET PO SCH (20:54)
[2018-05-01] MEDS: ATORVASTATIN 40 MG TABLET PO SCH (20:54)
[2018-05-01] MEDS: LOSARTAN 50MG TABLET PO SCH (20:54)
[2018-05-02 00:11] LABS: BASOPHILS # (AUTO) 0.06 x10^3/uL (0-0.1); BASOPHILS % (AUTO) 1 % (0-1); EOSINOPHILS # (AUTO) 0.31 x10^3/uL (0-0.4); EOSINOPHILS % (AUTO) 4 % (1-7); LYMPHOCYTES # (AUTO) 2.58 x10^3/uL (1-3.4); LYMPHOCYTES % (AUTO) 34 % (22-44); MD NO; MEAN CORPUSCULAR HEMOGLOBIN 32.5 pg (27.5-34.5); MEAN CORPUSCULAR HGB CONC 33.8 g/dL (33.2-36.2); MEAN CORPUSCULAR VOLUME 96.2 fL (81-97); MEAN PLATELET VOLUME 8.8 fL (7.4-10.4); MONOCYTES # (AUTO) 0.77 x10^3/uL (0.2-0.8); MONOCYTES % (AUTO) 10 % (2-9); NEUTROPHILS # (AUTO) 3.96 x10^3/uL (1.8-6.8); NEUTROPHILS % (AUTO) 52 % (42-75); PLATELET COUNT 252 x10^3/uL (130-400); RED BLOOD COUNT 4.14 x10^6/uL (4.38-5.82); RED CELL DISTRIBUTION WIDTH 13.9 % (9.4-14.8)
[2018-05-02 00:21] LABS: INTERNATIONAL NORMALIZED RATIO 1.06 (0.93-1.1); PROTHROMBIN TIME 11.2 Seconds (9.6-11.5)
[2018-05-02 00:35] LABS: ALANINE AMINOTRANSFERASE 50 U/L (12-78); ALBUMIN 2.7 g/dL (3.4-5.0); ANION GAP 8 mmol/L (5-15); CALCIUM 8.7 mg/dL (8.5-10.1); CHLORIDE 110 mmol/L (98-107)
[2018-05-02 00:39] LABS: ALKALINE PHOSPHATASE 110 U/L (45-117); BILIRUBIN,TOTAL 0.4 mg/dL (0.2-1.0)
[2018-05-02 00:42] VITALS: BP 144/77
[2018-05-02] MEDS ORDERED: NITROGLYCERIN 0.4 MG BOTTLE (25 TABS) SL ONE (01:00)
[2018-05-02 03:48] LABS: TROPONIN I 0.126 ng/mL (0.000-0.045)
[2018-05-02 07:16] VITALS: BP 135/78
[2018-05-02] MEDS: SENNA/DOCUSATE TABLET PO SCH (08:57)
[2018-05-02] MEDS: FUROSEMIDE 20 MG TABLET PO SCH (08:57)
[2018-05-02] MEDS: TAMSULOSIN 0.4 MG CAP.ER.24H PO SCH (08:57)
[2018-05-02] MEDS: APIXABAN 5 MG TABLET PO SCH (08:57)
[2018-05-02] MEDS: SPIRONOLACTONE 25 MG TABLET PO SCH (08:57)
[2018-05-02] MEDS: CARVEDILOL 12.5 MG TABLET PO SCH (08:57)
[2018-05-02] MEDS: CITALOPRAM 10 MG TABLET PO SCH (09:05)
== END 2018-05-02 01:00 | DRG 64 ==
LOC: 3E 14:44 → 5SO 05-02 00:19
PROVIDERS: ADMIT Counselor Mental Health; ATTEND Counselor Mental Health
DX: I63.9 Cerebral infarction, unspecified (principal); N17.0 Acute kidney failure with tubular necrosis; R45.851 Suicidal ideations; G81.94 Hemiplegia, unspecified affecting left nondominant side; E87.1 Hypo-osmolality and hyponatremia; F32.2 Major depressive disorder, single episode, severe without psychotic features; E87.0 Hyperosmolality and hypernatremia; Z66 Do not resuscitate; Z51.5 Encounter for palliative care; R45.850 Homicidal ideations; R13.10 Dysphagia, unspecified; I25.10 Atherosclerotic heart disease of native coronary artery without angina pectoris; R53.81 Other malaise; I51.3 Intracardiac thrombosis, not elsewhere classified; R74.8 Abnormal levels of other serum enzymes; F41.9 Anxiety disorder, unspecified; E78.5 Hyperlipidemia, unspecified; F09 Unspecified mental disorder due to known physiological condition; I11.0 Hypertensive heart disease with heart failure; I50.9 Heart failure, unspecified; I25.5 Ischemic cardiomyopathy; Z82.3 Family history of stroke; Z95.5 Presence of coronary angioplasty implant and graft; I25.2 Old myocardial infarction; Z88.2 Allergy status to sulfonamides; Z91.14 Patient's other noncompliance with medication regimen; Z90.89 Acquired absence of other organs; Z82.5 Family history of asthma and other chronic lower respiratory diseases; Z63.4 Disappearance and death of family member; F43.21 Adjustment disorder with depressed mood
CPT/HCPCS: 36415; 80053; 80061; 81003; 82140; 82607; 82746; 83735; 84100; 84439; 84443; 84484; 85025; 85610; 85730; 86592; 93005; 92523-GN

== ENCOUNTER 2018-05-02 01:01 | Observation (INO) | payer MEDICARE ==
[~2018-05-02] VITALS: Ht 165.1 cm; Wt 82.2 kg
[~2018-05-02 01:01] MED LIST changes: +APIX5TAB PO; +LOSA50TA14 PO; -LOSA50TA7 PO
[2018-05-02] MEDS ORDERED: TRAZODONE 50MG TABLET PO PRN (16:30)
[2018-05-02] MEDS ORDERED: BISACODYL 10 MG SUPP PR PRN (16:30)
[2018-05-02] MEDS ORDERED: LIDODERM 5% PATCH TD PRN (16:30)
[2018-05-02] MEDS ORDERED: NITROGLYCERIN 0.4 MG/SPRAY SL PRN (16:30)
[2018-05-02] MEDS ORDERED: LABETALOL 5MG/ML, 20ML IVPush PRN (16:30)
[2018-05-02] MEDS ORDERED: CAPTOPRIL 12.5 MG TABLET PO PRN (16:30)
[2018-05-02] MEDS ORDERED: NITROGLYCERIN 0.4 MG BOTTLE (25 TABS) SL PRN (16:30)
[2018-05-02] MEDS ORDERED: ONDANSETRON ODT 4 MG PO PRN (16:30)
[2018-05-02] MEDS ORDERED: LORazepam 0.5MG TABLET PO PRN (17:00)
[2018-05-02 19:43] VITALS: BP 143/70
[2018-05-02] MEDS: INSULIN LISPRO 100 UNITS/ML, PEN SQ-INSULIN SCH (21:00)
[2018-05-02] MEDS: APIXABAN 5 MG TABLET PO SCH (22:52)
[2018-05-02] MEDS: CARVEDILOL 12.5 MG TABLET PO SCH (22:52)
[2018-05-02] MEDS: LOSARTAN 50MG TABLET PO SCH (22:52)
[2018-05-02] MEDS: ATORVASTATIN 40 MG TABLET PO SCH (22:52)
[2018-05-02] MEDS: FAMOTIDINE 20 MG TABLET PO SCH (22:53)
[2018-05-03 01:22] VITALS: BP 149/76
[2018-05-03] MEDS: INSULIN LISPRO 100 UNITS/ML, PEN SQ-INSULIN SCH ×4 (07:00→21:00)
[2018-05-03] MEDS: FUROSEMIDE 20 MG TABLET PO SCH (09:19)
[2018-05-03] MEDS: CARVEDILOL 12.5 MG TABLET PO SCH ×2 (09:19→22:31)
[2018-05-03] MEDS: FAMOTIDINE 20 MG TABLET PO SCH ×2 (09:19→22:31)
[2018-05-03] MEDS: APIXABAN 5 MG TABLET PO SCH ×2 (09:19→22:31)
[2018-05-03] MEDS: CITALOPRAM 10 MG TABLET PO SCH (09:19)
[2018-05-03] MEDS: SPIRONOLACTONE 25 MG TABLET PO SCH (09:19)
[2018-05-03 19:20] VITALS: BP 172/75
[2018-05-03] MEDS: ATORVASTATIN 40 MG TABLET PO SCH (22:31)
[2018-05-03] MEDS: LOSARTAN 50MG TABLET PO SCH (22:32)
[2018-05-03 23:24] VITALS: BP 176/91
[2018-05-03] MEDS: ENALAPRILAT 1.25 MG/ML, 2ML IVPush PRN (23:31)
[2018-05-04 00:23] VITALS: BP 162/78
[2018-05-04 05:24] VITALS: BP 126/65
[2018-05-04 05:49] LABS: BASOPHILS # (AUTO) 0.04 x10^3/uL (0-0.1); BASOPHILS % (AUTO) 1 % (0-1); EOSINOPHILS # (AUTO) 0.36 x10^3/uL (0-0.4); EOSINOPHILS % (AUTO) 5 % (1-7); LYMPHOCYTES # (AUTO) 2.27 x10^3/uL (1-3.4); LYMPHOCYTES % (AUTO) 28 % (22-44); MD NO; MEAN CORPUSCULAR HEMOGLOBIN 32.4 pg (27.5-34.5); MEAN CORPUSCULAR HGB CONC 33.5 g/dL (33.2-36.2); MEAN CORPUSCULAR VOLUME 96.8 fL (81-97); MEAN PLATELET VOLUME 8.6 fL (7.4-10.4); MONOCYTES # (AUTO) 0.69 x10^3/uL (0.2-0.8); MONOCYTES % (AUTO) 9 % (2-9); NEUTROPHILS # (AUTO) 4.63 x10^3/uL (1.8-6.8); NEUTROPHILS % (AUTO) 58 % (42-75); PLATELET COUNT 245 x10^3/uL (130-400); RED BLOOD COUNT 3.95 x10^6/uL (4.38-5.82); RED CELL DISTRIBUTION WIDTH 13.8 % (9.4-14.8)
[2018-05-04 05:53] LABS: ANION GAP 7 mmol/L (5-15); CALCIUM 9.2 mg/dL (8.5-10.1); CHLORIDE 108 mmol/L (98-107); CREATININE 1.17 mg/dL (0.7-1.3)
[2018-05-04] MEDS: CARVEDILOL 12.5 MG TABLET PO SCH (06:48)
[2018-05-04] MEDS: INSULIN LISPRO 100 UNITS/ML, PEN SQ-INSULIN SCH ×4 (07:00→22:18)
[2018-05-04 07:02] VITALS: BP 122/72
[2018-05-04] MEDS: CITALOPRAM 10 MG TABLET PO SCH (09:29)
[2018-05-04] MEDS: FAMOTIDINE 20 MG TABLET PO SCH ×2 (09:29→21:12)
[2018-05-04] MEDS: DOCUSATE 100 MG CAPSULE PO PRN (09:29)
[2018-05-04] MEDS: SPIRONOLACTONE 25 MG TABLET PO SCH (09:29)
[2018-05-04] MEDS: FUROSEMIDE 20 MG TABLET PO SCH (09:30)
[2018-05-04] MEDS: APIXABAN 5 MG TABLET PO SCH ×2 (09:33→21:13)
--- NOTE | 2018-05-04 12:03 | NUR ---
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
[2018-05-04 13:54] VITALS: BP 103/63
[2018-05-04 18:47] VITALS: BP 151/84
[2018-05-04] MEDS: ATORVASTATIN 40 MG TABLET PO SCH (21:12)
[2018-05-04] MEDS: LOSARTAN 50MG TABLET PO SCH (21:13)
[2018-05-04] MEDS: CARVEDILOL 6.25 MG TABLET PO SCH (21:13)
[2018-05-05 01:09] VITALS: BP 138/71
[2018-05-05 05:28] LABS: ANION GAP 7 mmol/L (5-15); BASOPHILS # (AUTO) 0.04 x10^3/uL (0-0.1); BASOPHILS % (AUTO) 1 % (0-1); CALCIUM 8.3 mg/dL (8.5-10.1); CHLORIDE 111 mmol/L (98-107); EOSINOPHILS # (AUTO) 0.41 x10^3/uL (0-0.4); EOSINOPHILS % (AUTO) 6 % (1-7); LYMPHOCYTES # (AUTO) 2.37 x10^3/uL (1-3.4); LYMPHOCYTES % (AUTO) 34 % (22-44); MD NO; MEAN CORPUSCULAR HEMOGLOBIN 32.9 pg (27.5-34.5); MEAN CORPUSCULAR HGB CONC 33.9 g/dL (33.2-36.2); MEAN CORPUSCULAR VOLUME 97.2 fL (81-97); MEAN PLATELET VOLUME 8.7 fL (7.4-10.4); MONOCYTES # (AUTO) 0.55 x10^3/uL (0.2-0.8); MONOCYTES % (AUTO) 8 % (2-9); NEUTROPHILS # (AUTO) 3.68 x10^3/uL (1.8-6.8); NEUTROPHILS % (AUTO) 52 % (42-75); PLATELET COUNT 226 x10^3/uL (130-400); RED BLOOD COUNT 3.89 x10^6/uL (4.38-5.82); RED CELL DISTRIBUTION WIDTH 13.9 % (9.4-14.8)
[2018-05-05 05:30] LABS: CREATININE 1.08 mg/dL (0.7-1.3)
[2018-05-05 07:20] VITALS: BP 122/71
[2018-05-05] MEDS: INSULIN LISPRO 100 UNITS/ML, PEN SQ-INSULIN SCH ×4 (07:52→21:00)
[2018-05-05 09:15] VITALS: BP 145/77
[2018-05-05] MEDS: FAMOTIDINE 20 MG TABLET PO SCH ×2 (09:16→21:01)
[2018-05-05] MEDS: CITALOPRAM 10 MG TABLET PO SCH (09:16)
[2018-05-05] MEDS: FUROSEMIDE 20 MG TABLET PO SCH (09:16)
[2018-05-05] MEDS: CARVEDILOL 6.25 MG TABLET PO SCH ×2 (09:16→21:01)
[2018-05-05] MEDS: APIXABAN 5 MG TABLET PO SCH ×2 (09:16→21:01)
[2018-05-05] MEDS: SPIRONOLACTONE 25 MG TABLET PO SCH (09:17)
[2018-05-05 13:10] VITALS: BP 111/56
[2018-05-05 19:00] VITALS: BP 161/68
[2018-05-05] MEDS: LOSARTAN 50MG TABLET PO SCH (21:01)
[2018-05-05] MEDS: ATORVASTATIN 40 MG TABLET PO SCH (21:01)
[2018-05-06 00:04] VITALS: BP 170/75
[2018-05-06 06:13] LABS: ANION GAP 7 mmol/L (5-15); CALCIUM 8.6 mg/dL (8.5-10.1); CHLORIDE 110 mmol/L (98-107); CREATININE 1.03 mg/dL (0.7-1.3)
[2018-05-06] MEDS: INSULIN LISPRO 100 UNITS/ML, PEN SQ-INSULIN SCH ×4 (06:47→20:19)
[2018-05-06 06:52] VITALS: BP 165/81
[2018-05-06] MEDS: CARVEDILOL 6.25 MG TABLET PO SCH ×2 (08:24→20:20)
[2018-05-06] MEDS: SPIRONOLACTONE 25 MG TABLET PO SCH (08:24)
[2018-05-06] MEDS: CITALOPRAM 10 MG TABLET PO SCH (08:24)
[2018-05-06] MEDS: FUROSEMIDE 20 MG TABLET PO SCH (08:25)
[2018-05-06] MEDS: FAMOTIDINE 20 MG TABLET PO SCH ×2 (08:25→20:20)
[2018-05-06] MEDS: APIXABAN 5 MG TABLET PO SCH ×2 (08:25→20:19)
[2018-05-06 13:49] VITALS: BP 113/72
--- NOTE | 2018-05-06 14:05 | NUR ---
Green Nursing Activity Sheet 1. Patient to be transfer to/from chair with Clif Lift 1 x a day. 2. Upper extremity exercises per green exercise sheet Reviewed the green sheet with RN and Patient today and posted in room. Addendum: 05/06/18 at 1512 by SUGEY MEDRANO PTA Amended: Links added.
[2018-05-06 20:01] VITALS: BP 162/76
[2018-05-06] MEDS: ATORVASTATIN 40 MG TABLET PO SCH (20:20)
[2018-05-06] MEDS: LOSARTAN 50MG TABLET PO SCH (20:20)
[2018-05-07 02:10] VITALS: BP 164/90
[2018-05-07 05:31] LABS: ANION GAP 8 mmol/L (5-15); CALCIUM 8.8 mg/dL (8.5-10.1); CHLORIDE 108 mmol/L (98-107); CREATININE 1.09 mg/dL (0.7-1.3)
[2018-05-07 05:34] LABS: MEAN CORPUSCULAR HEMOGLOBIN 32.8 pg (27.5-34.5); MEAN CORPUSCULAR VOLUME 96.6 fL (81-97); RED BLOOD COUNT 4.07 x10^6/uL (4.38-5.82); RED CELL DISTRIBUTION WIDTH 13.5 % (9.4-14.8)
[2018-05-07 05:35] LABS: BASOPHILS # (AUTO) 0.04 x10^3/uL (0-0.1); BASOPHILS % (AUTO) 1 % (0-1); EOSINOPHILS # (AUTO) 0.49 x10^3/uL (0-0.4); EOSINOPHILS % (AUTO) 7 % (1-7); LYMPHOCYTES # (AUTO) 2.43 x10^3/uL (1-3.4); LYMPHOCYTES % (AUTO) 32 % (22-44); MD NO; MEAN PLATELET VOLUME 8.8 fL (7.4-10.4); MONOCYTES # (AUTO) 0.55 x10^3/uL (0.2-0.8); MONOCYTES % (AUTO) 7 % (2-9); NEUTROPHILS # (AUTO) 4.08 x10^3/uL (1.8-6.8); NEUTROPHILS % (AUTO) 54 % (42-75); PLATELET COUNT 228 x10^3/uL (130-400)
[2018-05-07] MEDS: INSULIN LISPRO 100 UNITS/ML, PEN SQ-INSULIN SCH ×4 (06:25→20:16)
[2018-05-07 06:58] VITALS: BP 168/83
[2018-05-07] MEDS: SPIRONOLACTONE 25 MG TABLET PO SCH (07:51)
[2018-05-07] MEDS: FAMOTIDINE 20 MG TABLET PO SCH ×2 (07:52→20:13)
[2018-05-07] MEDS: FUROSEMIDE 20 MG TABLET PO SCH (07:52)
[2018-05-07] MEDS: APIXABAN 5 MG TABLET PO SCH ×2 (07:52→20:13)
[2018-05-07] MEDS: CARVEDILOL 6.25 MG TABLET PO SCH ×2 (07:52→20:12)
[2018-05-07] MEDS: CITALOPRAM 10 MG TABLET PO SCH (07:52)
[2018-05-07 13:18] VITALS: BP 127/72
[2018-05-07 18:31] VITALS: BP 158/81
[2018-05-07] MEDS: LOSARTAN 50MG TABLET PO SCH (20:12)
[2018-05-07] MEDS: ATORVASTATIN 40 MG TABLET PO SCH (20:12)
[2018-05-08 00:06] VITALS: BP 168/88
[2018-05-08 05:18] LABS: BASOPHILS # (AUTO) 0.04 x10^3/uL (0-0.1); BASOPHILS % (AUTO) 0 % (0-1); EOSINOPHILS # (AUTO) 0.47 x10^3/uL (0-0.4); EOSINOPHILS % (AUTO) 6 % (1-7); LYMPHOCYTES # (AUTO) 2.24 x10^3/uL (1-3.4); LYMPHOCYTES % (AUTO) 28 % (22-44); MD NO; MEAN CORPUSCULAR HEMOGLOBIN 32.5 pg (27.5-34.5); MEAN CORPUSCULAR HGB CONC 33.6 g/dL (33.2-36.2); MEAN CORPUSCULAR VOLUME 96.5 fL (81-97); MEAN PLATELET VOLUME 9.1 fL (7.4-10.4); MONOCYTES # (AUTO) 0.52 x10^3/uL (0.2-0.8); MONOCYTES % (AUTO) 7 % (2-9); NEUTROPHILS # (AUTO) 4.81 x10^3/uL (1.8-6.8); NEUTROPHILS % (AUTO) 60 % (42-75); PLATELET COUNT 241 x10^3/uL (130-400); RED BLOOD COUNT 4.25 x10^6/uL (4.38-5.82); RED CELL DISTRIBUTION WIDTH 13.8 % (9.4-14.8)
[2018-05-08 05:24] LABS: ANION GAP 5 mmol/L (5-15); CALCIUM 8.9 mg/dL (8.5-10.1); CHLORIDE 109 mmol/L (98-107); CREATININE 1.11 mg/dL (0.7-1.3)
[2018-05-08 06:45] VITALS: BP 189/93
[2018-05-08] MEDS: INSULIN LISPRO 100 UNITS/ML, PEN SQ-INSULIN SCH ×4 (07:00→20:47)
[2018-05-08] MEDS: ENALAPRILAT 1.25 MG/ML, 2ML IVPush PRN (07:21)
[2018-05-08 07:55] VITALS: BP 157/88
[2018-05-08] MEDS: CARVEDILOL 6.25 MG TABLET PO SCH ×2 (08:48→20:46)
[2018-05-08] MEDS: CITALOPRAM 10 MG TABLET PO SCH (08:48)
[2018-05-08] MEDS: FUROSEMIDE 20 MG TABLET PO SCH (08:48)
[2018-05-08] MEDS: FAMOTIDINE 20 MG TABLET PO SCH ×2 (08:48→20:47)
[2018-05-08] MEDS: SPIRONOLACTONE 25 MG TABLET PO SCH (08:49)
[2018-05-08] MEDS: APIXABAN 5 MG TABLET PO SCH ×2 (08:49→20:47)
[2018-05-08] MEDS: ACETAMINOPHEN 325 MG TABLET PO PRN (11:24)
[2018-05-08 13:32] VITALS: BP 128/79
[2018-05-08 19:49] VITALS: BP 131/65
[2018-05-08] MEDS: LOSARTAN 50MG TABLET PO SCH (20:47)
[2018-05-08] MEDS: ATORVASTATIN 40 MG TABLET PO SCH (20:47)
[2018-05-09 03:06] VITALS: BP 152/74
[2018-05-09] MEDS: INSULIN LISPRO 100 UNITS/ML, PEN SQ-INSULIN SCH ×4 (07:00→20:54)
[2018-05-09] MEDS: ACETAMINOPHEN 325 MG TABLET PO PRN (07:40)
[2018-05-09 08:02] VITALS: BP 148/82
[2018-05-09] MEDS: SPIRONOLACTONE 25 MG TABLET PO SCH (08:20)
[2018-05-09] MEDS: CARVEDILOL 6.25 MG TABLET PO SCH ×2 (08:20→20:50)
[2018-05-09] MEDS: APIXABAN 5 MG TABLET PO SCH ×2 (08:20→20:49)
[2018-05-09] MEDS: FAMOTIDINE 20 MG TABLET PO SCH ×2 (08:20→20:49)
[2018-05-09] MEDS: FUROSEMIDE 20 MG TABLET PO SCH (08:21)
[2018-05-09] MEDS: CITALOPRAM 10 MG TABLET PO SCH (08:23)
[2018-05-09 12:42] VITALS: BP 129/78
[2018-05-09 18:42] VITALS: BP 168/96
[2018-05-09] MEDS: LOSARTAN 50MG TABLET PO SCH (20:49)
[2018-05-09] MEDS: ATORVASTATIN 40 MG TABLET PO SCH (20:49)
[2018-05-10 00:39] VITALS: BP 165/80
[2018-05-10 05:45] LABS: ANION GAP 5 mmol/L (5-15); CALCIUM 9.2 mg/dL (8.5-10.1); CHLORIDE 111 mmol/L (98-107); CREATININE 1.26 mg/dL (0.7-1.3)
[2018-05-10] MEDS: INSULIN LISPRO 100 UNITS/ML, PEN SQ-INSULIN SCH ×4 (06:29→20:48)
[2018-05-10 06:58] VITALS: BP 146/76
[2018-05-10] MEDS: SPIRONOLACTONE 25 MG TABLET PO SCH (08:23)
[2018-05-10] MEDS: CARVEDILOL 6.25 MG TABLET PO SCH ×2 (08:24→20:48)
[2018-05-10] MEDS: ACETAMINOPHEN 325 MG TABLET PO PRN (08:24)
[2018-05-10] MEDS: CITALOPRAM 10 MG TABLET PO SCH (08:24)
[2018-05-10] MEDS: APIXABAN 5 MG TABLET PO SCH ×2 (08:24→20:48)
[2018-05-10] MEDS: FUROSEMIDE 20 MG TABLET PO SCH (08:24)
[2018-05-10] MEDS: FAMOTIDINE 20 MG TABLET PO SCH ×2 (08:24→20:48)
[2018-05-10] MEDS: POLYETHYLENE GLYCOL 17 GM PACKET PO PRN (08:33)
[2018-05-10 12:36] VITALS: BP 141/68
[2018-05-10] MEDS: DOCUSATE 100 MG CAPSULE PO PRN (13:35)
[2018-05-10] MEDS: TAMSULOSIN 0.4 MG CAP.ER.24H PO SCH (13:35)
[2018-05-10 18:43] VITALS: BP 157/84
[2018-05-10] MEDS: ATORVASTATIN 40 MG TABLET PO SCH (20:48)
[2018-05-10] MEDS: LOSARTAN 50MG TABLET PO SCH (20:48)
[2018-05-11 00:12] VITALS: BP 157/82
[2018-05-11 05:34] LABS: BASOPHILS # (AUTO) 0.05 x10^3/uL (0-0.1); BASOPHILS % (AUTO) 1 % (0-1); EOSINOPHILS % (AUTO) 7 % (1-7); LYMPHOCYTES # (AUTO) 2.41 x10^3/uL (1-3.4); LYMPHOCYTES % (AUTO) 35 % (22-44); MD NO; MEAN CORPUSCULAR HEMOGLOBIN 32.3 pg (27.5-34.5); MEAN CORPUSCULAR HGB CONC 33.2 g/dL (33.2-36.2); MEAN CORPUSCULAR VOLUME 97.1 fL (81-97); MEAN PLATELET VOLUME 9.1 fL (7.4-10.4); MONOCYTES % (AUTO) 9 % (2-9); NEUTROPHILS % (AUTO) 48 % (42-75); PLATELET COUNT 219 x10^3/uL (130-400); RED BLOOD COUNT 4.06 x10^6/uL (4.38-5.82); RED CELL DISTRIBUTION WIDTH 14.1 % (9.4-14.8)
[2018-05-11 05:43] LABS: ANION GAP 8 mmol/L (5-15); CALCIUM 8.9 mg/dL (8.5-10.1); CHLORIDE 111 mmol/L (98-107)
[2018-05-11 05:44] LABS: CREATININE 1.03 mg/dL (0.7-1.3)
[2018-05-11] MEDS: INSULIN LISPRO 100 UNITS/ML, PEN SQ-INSULIN SCH ×4 (06:02→20:09)
[2018-05-11] MEDS: POLYETHYLENE GLYCOL 17 GM PACKET PO PRN (06:07)
[2018-05-11 07:33] VITALS: BP 121/8
[2018-05-11] MEDS: TAMSULOSIN 0.4 MG CAP.ER.24H PO SCH (08:57)
[2018-05-11] MEDS: FUROSEMIDE 20 MG TABLET PO SCH (08:57)
[2018-05-11] MEDS: FAMOTIDINE 20 MG TABLET PO SCH ×2 (08:57→20:04)
[2018-05-11] MEDS: CITALOPRAM 10 MG TABLET PO SCH (08:57)
[2018-05-11] MEDS: CARVEDILOL 6.25 MG TABLET PO SCH ×2 (08:58→20:04)
[2018-05-11] MEDS: APIXABAN 5 MG TABLET PO SCH ×2 (08:58→20:03)
[2018-05-11] MEDS: SPIRONOLACTONE 25 MG TABLET PO SCH (08:58)
[2018-05-11] MEDS: POLYETHYLENE GLYCOL 17 GM PACKET PO SCH ×2 (09:05→20:03)
[2018-05-11 13:34] VITALS: BP 133/62
[2018-05-11 19:25] VITALS: BP 129/77
[2018-05-11] MEDS: ATORVASTATIN 40 MG TABLET PO SCH (20:04)
[2018-05-11] MEDS: LOSARTAN 50MG TABLET PO SCH (20:04)
[2018-05-12 01:57] VITALS: BP 151/76
[2018-05-12] MEDS: INSULIN LISPRO 100 UNITS/ML, PEN SQ-INSULIN SCH ×4 (06:12→20:24)
[2018-05-12 08:00] VITALS: BP 160/84
[2018-05-12 08:55] VITALS: BP 178/86
[2018-05-12] MEDS: CITALOPRAM 10 MG TABLET PO SCH (08:58)
[2018-05-12] MEDS: FUROSEMIDE 20 MG TABLET PO SCH (08:58)
[2018-05-12] MEDS: CARVEDILOL 6.25 MG TABLET PO SCH ×2 (08:58→20:25)
[2018-05-12] MEDS: SPIRONOLACTONE 25 MG TABLET PO SCH (08:58)
[2018-05-12] MEDS: POLYETHYLENE GLYCOL 17 GM PACKET PO SCH ×2 (08:59→20:25)
[2018-05-12] MEDS: APIXABAN 5 MG TABLET PO SCH ×2 (08:59→20:25)
[2018-05-12] MEDS: FAMOTIDINE 20 MG TABLET PO SCH ×2 (08:59→20:25)
[2018-05-12] MEDS: TAMSULOSIN 0.4 MG CAP.ER.24H PO SCH (08:59)
[2018-05-12 13:12] VITALS: BP 117/70
[2018-05-12 18:37] VITALS: BP 155/74
[2018-05-12] MEDS: LOSARTAN 50MG TABLET PO SCH (20:25)
[2018-05-12] MEDS: ATORVASTATIN 40 MG TABLET PO SCH (20:25)
[2018-05-13 00:25] VITALS: BP 148/79
[2018-05-13] MEDS: INSULIN LISPRO 100 UNITS/ML, PEN SQ-INSULIN SCH ×4 (06:05→20:22)
[2018-05-13 07:03] VITALS: BP 137/62
[2018-05-13] MEDS: TAMSULOSIN 0.4 MG CAP.ER.24H PO SCH (08:19)
[2018-05-13] MEDS: CITALOPRAM 10 MG TABLET PO SCH (08:19)
[2018-05-13] MEDS: FUROSEMIDE 20 MG TABLET PO SCH (08:19)
[2018-05-13] MEDS: SPIRONOLACTONE 25 MG TABLET PO SCH (08:19)
[2018-05-13] MEDS: APIXABAN 5 MG TABLET PO SCH ×2 (08:20→20:19)
[2018-05-13] MEDS: POLYETHYLENE GLYCOL 17 GM PACKET PO SCH ×2 (08:20→20:19)
[2018-05-13] MEDS: FAMOTIDINE 20 MG TABLET PO SCH ×2 (08:20→20:19)
[2018-05-13] MEDS: CARVEDILOL 6.25 MG TABLET PO SCH ×2 (08:20→20:19)
[2018-05-13 15:47] VITALS: BP 137/76
[2018-05-13] MEDS: LOSARTAN 50MG TABLET PO SCH (20:19)
[2018-05-13] MEDS: ATORVASTATIN 40 MG TABLET PO SCH (20:19)
[2018-05-13 20:20] VITALS: BP 132/66
[2018-05-14 01:46] VITALS: BP 148/81
[2018-05-14] MEDS: INSULIN LISPRO 100 UNITS/ML, PEN SQ-INSULIN SCH ×4 (07:25→21:00)
[2018-05-14 09:05] VITALS: BP 147/85
[2018-05-14] MEDS: CARVEDILOL 6.25 MG TABLET PO SCH ×2 (09:38→21:56)
[2018-05-14] MEDS: FAMOTIDINE 20 MG TABLET PO SCH ×2 (09:38→21:56)
[2018-05-14] MEDS: TAMSULOSIN 0.4 MG CAP.ER.24H PO SCH (09:38)
[2018-05-14] MEDS: SPIRONOLACTONE 25 MG TABLET PO SCH (09:38)
[2018-05-14] MEDS: CITALOPRAM 10 MG TABLET PO SCH (09:38)
[2018-05-14] MEDS: POLYETHYLENE GLYCOL 17 GM PACKET PO SCH ×2 (09:39→21:00)
[2018-05-14] MEDS: FUROSEMIDE 20 MG TABLET PO SCH (09:39)
[2018-05-14] MEDS: APIXABAN 5 MG TABLET PO SCH ×2 (09:41→21:57)
[2018-05-14 13:49] VITALS: BP 117/71
[2018-05-14 18:42] VITALS: BP 152/86
[2018-05-14] MEDS: ATORVASTATIN 40 MG TABLET PO SCH (21:56)
[2018-05-14] MEDS: LOSARTAN 50MG TABLET PO SCH (21:57)
[2018-05-15 00:19] VITALS: BP 144/82
[2018-05-15 06:36] VITALS: BP 147/84
[2018-05-15] MEDS: INSULIN LISPRO 100 UNITS/ML, PEN SQ-INSULIN SCH ×4 (07:00→21:00)
[2018-05-15] MEDS: POLYETHYLENE GLYCOL 17 GM PACKET PO SCH ×2 (09:00→21:00)
[2018-05-15] MEDS: CARVEDILOL 6.25 MG TABLET PO SCH ×2 (09:34→21:22)
[2018-05-15] MEDS: TAMSULOSIN 0.4 MG CAP.ER.24H PO SCH (09:34)
[2018-05-15] MEDS: FUROSEMIDE 20 MG TABLET PO SCH (09:34)
[2018-05-15] MEDS: SPIRONOLACTONE 25 MG TABLET PO SCH (09:35)
[2018-05-15] MEDS: FAMOTIDINE 20 MG TABLET PO SCH ×2 (09:35→21:21)
[2018-05-15] MEDS: CITALOPRAM 10 MG TABLET PO SCH (09:35)
[2018-05-15] MEDS: APIXABAN 5 MG TABLET PO SCH ×2 (09:35→21:21)
[2018-05-15 13:13] VITALS: BP 130/78
[2018-05-15 19:20] VITALS: BP 136/69
[2018-05-15] MEDS: ATORVASTATIN 40 MG TABLET PO SCH (21:21)
[2018-05-15] MEDS: LOSARTAN 50MG TABLET PO SCH (21:21)
[2018-05-16 02:12] VITALS: BP 140/70
[2018-05-16 06:31] VITALS: BP 138/78
[2018-05-16] MEDS: INSULIN LISPRO 100 UNITS/ML, PEN SQ-INSULIN SCH ×4 (07:00→21:18)
[2018-05-16] MEDS: POLYETHYLENE GLYCOL 17 GM PACKET PO SCH ×2 (09:00→21:19)
[2018-05-16] MEDS: CITALOPRAM 10 MG TABLET PO SCH (09:44)
[2018-05-16] MEDS: SPIRONOLACTONE 25 MG TABLET PO SCH (09:44)
[2018-05-16] MEDS: FAMOTIDINE 20 MG TABLET PO SCH ×2 (09:45→21:14)
[2018-05-16] MEDS: CARVEDILOL 6.25 MG TABLET PO SCH ×2 (09:45→21:14)
[2018-05-16] MEDS: TAMSULOSIN 0.4 MG CAP.ER.24H PO SCH (09:45)
[2018-05-16] MEDS: APIXABAN 5 MG TABLET PO SCH ×2 (09:45→21:22)
[2018-05-16] MEDS: FUROSEMIDE 20 MG TABLET PO SCH (09:45)
[2018-05-16 12:22] VITALS: BP 144/77
[2018-05-16 20:00] VITALS: BP 137/80
[2018-05-16] MEDS: ATORVASTATIN 40 MG TABLET PO SCH (21:14)
[2018-05-16] MEDS: LOSARTAN 50MG TABLET PO SCH (21:16)
[2018-05-17 02:59] VITALS: BP 134/64
[2018-05-17 05:59] LABS: BASOPHILS # (AUTO) 0.03 x10^3/uL (0-0.1); BASOPHILS % (AUTO) 0 % (0-1); EOSINOPHILS # (AUTO) 0.36 x10^3/uL (0-0.4); EOSINOPHILS % (AUTO) 5 % (1-7); LYMPHOCYTES # (AUTO) 2.47 x10^3/uL (1-3.4); LYMPHOCYTES % (AUTO) 34 % (22-44); MD NO; MEAN CORPUSCULAR HEMOGLOBIN 31.5 pg (27.5-34.5); MEAN CORPUSCULAR HGB CONC 32.8 g/dL (33.2-36.2); MEAN CORPUSCULAR VOLUME 96.2 fL (81-97); MEAN PLATELET VOLUME 9.4 fL (7.4-10.4); MONOCYTES # (AUTO) 0.77 x10^3/uL (0.2-0.8); MONOCYTES % (AUTO) 11 % (2-9); NEUTROPHILS # (AUTO) 3.62 x10^3/uL (1.8-6.8); NEUTROPHILS % (AUTO) 50 % (42-75); PLATELET COUNT 218 x10^3/uL (130-400); RED BLOOD COUNT 4.39 x10^6/uL (4.38-5.82); RED CELL DISTRIBUTION WIDTH 14.4 % (9.4-14.8)
[2018-05-17 06:11] LABS: CHLORIDE 106 mmol/L (98-107)
[2018-05-17 06:22] LABS: ANION GAP 10 mmol/L (5-15); CALCIUM 9.3 mg/dL (8.5-10.1); CREATININE 1.17 mg/dL (0.7-1.3)
[2018-05-17 06:24] VITALS: BP 143/74
[2018-05-17] MEDS: INSULIN LISPRO 100 UNITS/ML, PEN SQ-INSULIN SCH ×4 (07:00→20:16)
[2018-05-17] MEDS: POLYETHYLENE GLYCOL 17 GM PACKET PO SCH ×2 (09:00→20:16)
[2018-05-17] MEDS: TAMSULOSIN 0.4 MG CAP.ER.24H PO SCH (10:10)
[2018-05-17] MEDS: FAMOTIDINE 20 MG TABLET PO SCH ×2 (10:10→20:15)
[2018-05-17] MEDS: CITALOPRAM 10 MG TABLET PO SCH (10:10)
[2018-05-17] MEDS: APIXABAN 5 MG TABLET PO SCH ×2 (10:10→20:15)
[2018-05-17] MEDS: FUROSEMIDE 20 MG TABLET PO SCH (10:10)
[2018-05-17] MEDS: ACETAMINOPHEN 325 MG TABLET PO PRN (10:11)
[2018-05-17] MEDS: CARVEDILOL 6.25 MG TABLET PO SCH ×2 (10:11→20:15)
[2018-05-17] MEDS: SPIRONOLACTONE 25 MG TABLET PO SCH (10:11)
[2018-05-17 12:45] VITALS: BP 111/61
[2018-05-17 18:35] VITALS: BP 114/71
[2018-05-17] MEDS: LOSARTAN 50MG TABLET PO SCH (20:15)
[2018-05-17] MEDS: ATORVASTATIN 40 MG TABLET PO SCH (20:15)
[2018-05-17] MEDS: DOCUSATE 100 MG CAPSULE PO PRN (20:15)
[2018-05-18 00:18] VITALS: BP 99/58
[2018-05-18] MEDS: INSULIN LISPRO 100 UNITS/ML, PEN SQ-INSULIN SCH ×4 (06:41→20:37)
[2018-05-18 07:35] VITALS: BP 130/76
[2018-05-18] MEDS: POLYETHYLENE GLYCOL 17 GM PACKET PO SCH ×2 (09:00→20:36)
[2018-05-18] MEDS: CITALOPRAM 10 MG TABLET PO SCH (09:40)
[2018-05-18] MEDS: SPIRONOLACTONE 25 MG TABLET PO SCH (09:40)
[2018-05-18] MEDS: FAMOTIDINE 20 MG TABLET PO SCH ×2 (09:40→20:36)
[2018-05-18] MEDS: TAMSULOSIN 0.4 MG CAP.ER.24H PO SCH (09:40)
[2018-05-18] MEDS: CARVEDILOL 6.25 MG TABLET PO SCH ×2 (09:41→20:36)
[2018-05-18] MEDS: FUROSEMIDE 20 MG TABLET PO SCH (09:41)
[2018-05-18] MEDS: APIXABAN 5 MG TABLET PO SCH ×2 (09:41→20:36)
[2018-05-18 13:24] VITALS: BP 139/79
[2018-05-18 19:12] VITALS: BP 124/75
[2018-05-18] MEDS: LOSARTAN 50MG TABLET PO SCH (20:36)
[2018-05-18] MEDS: ATORVASTATIN 40 MG TABLET PO SCH (20:36)
[2018-05-19 00:51] VITALS: BP 153/84
[2018-05-19] MEDS: INSULIN LISPRO 100 UNITS/ML, PEN SQ-INSULIN SCH ×4 (06:29→20:10)
[2018-05-19 06:45] VITALS: BP 134/80
[2018-05-19] MEDS: POLYETHYLENE GLYCOL 17 GM PACKET PO SCH ×3 (09:00→20:21)
[2018-05-19] MEDS: CARVEDILOL 6.25 MG TABLET PO SCH ×2 (10:03→20:10)
[2018-05-19] MEDS: SPIRONOLACTONE 25 MG TABLET PO SCH (10:03)
[2018-05-19] MEDS: FAMOTIDINE 20 MG TABLET PO SCH ×2 (10:04→20:10)
[2018-05-19] MEDS: FUROSEMIDE 20 MG TABLET PO SCH (10:04)
[2018-05-19] MEDS: CITALOPRAM 10 MG TABLET PO SCH (10:04)
[2018-05-19] MEDS: APIXABAN 5 MG TABLET PO SCH ×2 (10:05→20:10)
[2018-05-19] MEDS: TAMSULOSIN 0.4 MG CAP.ER.24H PO SCH (10:05)
[2018-05-19 12:47] VITALS: BP 153/80
[2018-05-19 18:32] VITALS: BP 150/66
[2018-05-19] MEDS: ATORVASTATIN 40 MG TABLET PO SCH (20:10)
[2018-05-19] MEDS: LOSARTAN 50MG TABLET PO SCH (20:10)
[2018-05-20 00:42] VITALS: BP 157/75
[2018-05-20 06:26] VITALS: BP 141/79
[2018-05-20] MEDS: INSULIN LISPRO 100 UNITS/ML, PEN SQ-INSULIN SCH ×4 (07:00→20:06)
[2018-05-20] MEDS: FUROSEMIDE 20 MG TABLET PO SCH (08:06)
[2018-05-20] MEDS: POLYETHYLENE GLYCOL 17 GM PACKET PO SCH ×2 (08:06→20:07)
[2018-05-20] MEDS: TAMSULOSIN 0.4 MG CAP.ER.24H PO SCH (08:07)
[2018-05-20] MEDS: CARVEDILOL 6.25 MG TABLET PO SCH ×2 (08:07→20:07)
[2018-05-20] MEDS: CITALOPRAM 10 MG TABLET PO SCH (08:07)
[2018-05-20] MEDS: SPIRONOLACTONE 25 MG TABLET PO SCH (08:07)
[2018-05-20] MEDS: APIXABAN 5 MG TABLET PO SCH ×2 (08:07→20:07)
[2018-05-20] MEDS: FAMOTIDINE 20 MG TABLET PO SCH ×2 (08:07→20:07)
[2018-05-20 12:38] VITALS: BP 126/74
[2018-05-20 18:39] VITALS: BP 144/75
[2018-05-20] MEDS: ATORVASTATIN 40 MG TABLET PO SCH (20:06)
[2018-05-20] MEDS: LOSARTAN 50MG TABLET PO SCH (20:07)
[2018-05-21 01:13] VITALS: BP 140/68
[2018-05-21 06:46] VITALS: BP 154/75
[2018-05-21] MEDS: INSULIN LISPRO 100 UNITS/ML, PEN SQ-INSULIN SCH ×4 (07:00→20:58)
[2018-05-21] MEDS: POLYETHYLENE GLYCOL 17 GM PACKET PO SCH ×2 (09:00→20:58)
[2018-05-21] MEDS: SPIRONOLACTONE 25 MG TABLET PO SCH (09:12)
[2018-05-21] MEDS: FUROSEMIDE 20 MG TABLET PO SCH (09:12)
[2018-05-21] MEDS: FAMOTIDINE 20 MG TABLET PO SCH ×2 (09:12→20:58)
[2018-05-21] MEDS: CITALOPRAM 10 MG TABLET PO SCH (09:13)
[2018-05-21] MEDS: APIXABAN 5 MG TABLET PO SCH ×2 (09:13→20:58)
[2018-05-21] MEDS: CARVEDILOL 6.25 MG TABLET PO SCH ×2 (09:13→20:58)
[2018-05-21] MEDS: TAMSULOSIN 0.4 MG CAP.ER.24H PO SCH (09:13)
[2018-05-21 12:12] VITALS: BP 131/76
[2018-05-21] MEDS: ACETAMINOPHEN 325 MG TABLET PO PRN (17:41)
[2018-05-21 19:41] VITALS: BP 140/80
[2018-05-21] MEDS: ATORVASTATIN 40 MG TABLET PO SCH (20:58)
[2018-05-21] MEDS: LOSARTAN 50MG TABLET PO SCH (20:58)
[2018-05-22 02:21] VITALS: BP 145/63
[2018-05-22 06:31] VITALS: BP 156/84
[2018-05-22] MEDS: INSULIN LISPRO 100 UNITS/ML, PEN SQ-INSULIN SCH ×4 (06:44→21:07)
[2018-05-22] MEDS: POLYETHYLENE GLYCOL 17 GM PACKET PO SCH ×2 (09:00→21:12)
[2018-05-22] MEDS: SPIRONOLACTONE 25 MG TABLET PO SCH (09:03)
[2018-05-22] MEDS: APIXABAN 5 MG TABLET PO SCH ×2 (09:03→21:36)
[2018-05-22] MEDS: TAMSULOSIN 0.4 MG CAP.ER.24H PO SCH (09:04)
[2018-05-22] MEDS: CITALOPRAM 10 MG TABLET PO SCH (09:04)
[2018-05-22] MEDS: FAMOTIDINE 20 MG TABLET PO SCH ×2 (09:04→21:36)
[2018-05-22] MEDS: CARVEDILOL 6.25 MG TABLET PO SCH ×2 (09:04→21:36)
[2018-05-22] MEDS: FUROSEMIDE 20 MG TABLET PO SCH (09:04)
[2018-05-22 12:10] VITALS: BP 124/76
[2018-05-22 19:58] VITALS: BP 133/71
[2018-05-22] MEDS: LOSARTAN 50MG TABLET PO SCH (21:36)
[2018-05-22] MEDS: ATORVASTATIN 40 MG TABLET PO SCH (21:36)
[2018-05-23 01:57] VITALS: BP 164/85
[2018-05-23 06:20] VITALS: BP 161/69
[2018-05-23] MEDS: INSULIN LISPRO 100 UNITS/ML, PEN SQ-INSULIN SCH ×4 (07:00→21:00)
[2018-05-23] MEDS: POLYETHYLENE GLYCOL 17 GM PACKET PO SCH ×2 (09:00→21:00)
[2018-05-23] MEDS: SPIRONOLACTONE 25 MG TABLET PO SCH (09:22)
[2018-05-23] MEDS: APIXABAN 5 MG TABLET PO SCH ×2 (09:23→22:15)
[2018-05-23] MEDS: CITALOPRAM 10 MG TABLET PO SCH (09:23)
[2018-05-23] MEDS: TAMSULOSIN 0.4 MG CAP.ER.24H PO SCH (09:23)
[2018-05-23] MEDS: FUROSEMIDE 20 MG TABLET PO SCH (09:23)
[2018-05-23] MEDS: CARVEDILOL 6.25 MG TABLET PO SCH ×2 (09:23→22:16)
[2018-05-23] MEDS: FAMOTIDINE 20 MG TABLET PO SCH ×2 (09:24→22:16)
[2018-05-23 12:50] VITALS: BP 120/79
[2018-05-23 19:40] VITALS: BP 128/74
[2018-05-23] MEDS: ATORVASTATIN 40 MG TABLET PO SCH (22:15)
[2018-05-23] MEDS: LOSARTAN 50MG TABLET PO SCH (22:15)
[2018-05-24 02:17] VITALS: BP 112/65
[2018-05-24 06:30] VITALS: BP 135/70
[2018-05-24] MEDS: INSULIN LISPRO 100 UNITS/ML, PEN SQ-INSULIN SCH ×4 (07:00→21:00)
[2018-05-24] MEDS: CITALOPRAM 10 MG TABLET PO SCH (09:00)
[2018-05-24] MEDS: CARVEDILOL 6.25 MG TABLET PO SCH ×2 (09:19→23:17)
[2018-05-24] MEDS: SPIRONOLACTONE 25 MG TABLET PO SCH (09:19)
[2018-05-24] MEDS: FUROSEMIDE 20 MG TABLET PO SCH (09:19)
[2018-05-24] MEDS: FAMOTIDINE 20 MG TABLET PO SCH ×2 (09:19→23:17)
[2018-05-24] MEDS: TAMSULOSIN 0.4 MG CAP.ER.24H PO SCH (09:19)
[2018-05-24] MEDS: POLYETHYLENE GLYCOL 17 GM PACKET PO SCH ×2 (09:20→21:00)
[2018-05-24] MEDS: APIXABAN 5 MG TABLET PO SCH ×2 (09:20→23:16)
[2018-05-24 13:15] VITALS: BP 101/60
[2018-05-24 19:00] VITALS: BP_SYST 129
[2018-05-24] MEDS: LOSARTAN 50MG TABLET PO SCH (23:17)
[2018-05-24] MEDS: ATORVASTATIN 40 MG TABLET PO SCH (23:17)
[2018-05-25 01:30] VITALS: BP 139/87
[2018-05-25 06:26] VITALS: BP 132/73
[2018-05-25] MEDS: INSULIN LISPRO 100 UNITS/ML, PEN SQ-INSULIN SCH ×2 (07:00→11:00)
[2018-05-25] MEDS: POLYETHYLENE GLYCOL 17 GM PACKET PO SCH ×2 (08:40→20:51)
[2018-05-25] MEDS: TAMSULOSIN 0.4 MG CAP.ER.24H PO SCH (09:07)
[2018-05-25] MEDS: FUROSEMIDE 20 MG TABLET PO SCH (09:07)
[2018-05-25] MEDS: FAMOTIDINE 20 MG TABLET PO SCH ×2 (09:07→20:52)
[2018-05-25] MEDS: CITALOPRAM 10 MG TABLET PO SCH (09:07)
[2018-05-25] MEDS: APIXABAN 5 MG TABLET PO SCH ×2 (09:08→20:52)
[2018-05-25] MEDS: SPIRONOLACTONE 25 MG TABLET PO SCH (09:08)
[2018-05-25] MEDS: CARVEDILOL 6.25 MG TABLET PO SCH ×2 (09:08→20:52)
[2018-05-25 12:53] VITALS: BP 128/83
[2018-05-25 19:04] VITALS: BP 126/69
[2018-05-25] MEDS: LOSARTAN 50MG TABLET PO SCH (20:52)
[2018-05-25] MEDS: ATORVASTATIN 40 MG TABLET PO SCH (20:52)
[2018-05-26 00:58] VITALS: BP 149/83
[2018-05-26 07:05] VITALS: BP 126/74
[2018-05-26] MEDS: TAMSULOSIN 0.4 MG CAP.ER.24H PO SCH (08:31)
[2018-05-26] MEDS: CARVEDILOL 6.25 MG TABLET PO SCH ×2 (08:31→20:28)
[2018-05-26] MEDS: FUROSEMIDE 20 MG TABLET PO SCH (08:31)
[2018-05-26] MEDS: APIXABAN 5 MG TABLET PO SCH ×2 (08:32→20:28)
[2018-05-26] MEDS: POLYETHYLENE GLYCOL 17 GM PACKET PO SCH ×2 (08:32→20:28)
[2018-05-26] MEDS: CITALOPRAM 10 MG TABLET PO SCH (08:32)
[2018-05-26] MEDS: FAMOTIDINE 20 MG TABLET PO SCH ×2 (08:32→20:28)
[2018-05-26] MEDS: SPIRONOLACTONE 25 MG TABLET PO SCH (09:21)
[2018-05-26 13:11] VITALS: BP 133/72
[2018-05-26 19:04] VITALS: BP 123/73
[2018-05-26] MEDS: ATORVASTATIN 40 MG TABLET PO SCH (20:28)
[2018-05-26] MEDS: LOSARTAN 50MG TABLET PO SCH (20:28)
[2018-05-27 00:39] VITALS: BP 131/74
[2018-05-27] MEDS: FUROSEMIDE 20 MG TABLET PO SCH (08:35)
[2018-05-27] MEDS: CARVEDILOL 6.25 MG TABLET PO SCH ×2 (08:35→21:09)
[2018-05-27] MEDS: FAMOTIDINE 20 MG TABLET PO SCH ×2 (08:35→21:09)
[2018-05-27] MEDS: SPIRONOLACTONE 25 MG TABLET PO SCH (08:36)
[2018-05-27] MEDS: TAMSULOSIN 0.4 MG CAP.ER.24H PO SCH (08:36)
[2018-05-27] MEDS: APIXABAN 5 MG TABLET PO SCH ×2 (08:36→21:09)
[2018-05-27] MEDS: POLYETHYLENE GLYCOL 17 GM PACKET PO SCH ×2 (08:38→21:09)
[2018-05-27] MEDS: CITALOPRAM 10 MG TABLET PO SCH (08:38)
[2018-05-27 08:47] VITALS: BP 132/70
[2018-05-27] MEDS ORDERED: POLY17PO5 PO (10:57)
[2018-05-27] MEDS ORDERED: CARV6.2512 PO (10:57)
[2018-05-27] MEDS ORDERED: NITR0.4T SL (10:57)
[2018-05-27] MEDS ORDERED: DIPHENHYDRAMINE/ZINC CRM 2%, 30GM TP PRN (11:30)
[2018-05-27 14:01] VITALS: BP 149/83
[2018-05-27 19:25] VITALS: BP 145/86
[2018-05-27] MEDS: ATORVASTATIN 40 MG TABLET PO SCH (21:09)
[2018-05-27] MEDS: LOSARTAN 50MG TABLET PO SCH (21:09)
[2018-05-28 00:35] VITALS: BP 133/78
[2018-05-28 07:54] VITALS: BP 123/75
[2018-05-28] MEDS: TAMSULOSIN 0.4 MG CAP.ER.24H PO SCH (08:44)
[2018-05-28] MEDS: CITALOPRAM 10 MG TABLET PO SCH (08:44)
[2018-05-28] MEDS: SPIRONOLACTONE 25 MG TABLET PO SCH (08:44)
[2018-05-28] MEDS: FUROSEMIDE 20 MG TABLET PO SCH (08:44)
[2018-05-28] MEDS: APIXABAN 5 MG TABLET PO SCH (08:44)
[2018-05-28] MEDS: POLYETHYLENE GLYCOL 17 GM PACKET PO SCH (08:44)
[2018-05-28] MEDS: FAMOTIDINE 20 MG TABLET PO SCH (08:44)
[2018-05-28] MEDS: CARVEDILOL 6.25 MG TABLET PO SCH (08:44)
[2018-05-28 12:14] VITALS: BP 126/78
[2018-05-28 15:31] VITALS: BP 125/77
== END 2018-05-28 16:10 ==
LOC: INTOOBSV 01:01 → 5SO 01:01 → 4NOR 05-05 17:42
PROVIDERS: ADMIT Hospitalist; ATTEND Hospitalist
DX: R07.89 Other chest pain (principal); I25.5 Ischemic cardiomyopathy; E78.5 Hyperlipidemia, unspecified; F32.9 Major depressive disorder, single episode, unspecified; F41.9 Anxiety disorder, unspecified; I10 Essential (primary) hypertension; I25.10 Atherosclerotic heart disease of native coronary artery without angina pectoris; R13.10 Dysphagia, unspecified; R45.851 Suicidal ideations; Z86.73 Personal history of transient ischemic attack (TIA), and cerebral infarction without residual deficits; I51.3 Intracardiac thrombosis, not elsewhere classified; I69.354 Hemiplegia and hemiparesis following cerebral infarction affecting left non-dominant side
CPT/HCPCS: 36415; 71045; 80048; 82962; 85025; 92507; 92523; 92526; 92610; 93005; 96372; 96374; 96376; 97112; 97116; 97162; 97530; 97535; G0378; J1815; 96375